=== PATIENT | male | born 1970 | race Caucasian/White ===

== ENCOUNTER 2019-08-24 14:49 | Emergency (ER) | payer BC, SELFPAY ==
--- NOTE | ~2019-08-24 | CT_ITS ---
EXAMINATION: CT abdomen pelvis wo con DATE: 08/24/2019 15:17 INDICATION: Hematuria TECHNIQUE: Computed tomography (CT) of the abdomen and pelvis was performed without intravenous contr ast. The dose-length product (DLP) was 866.08 mGy-cm. Automated exposure control and iterative recons truction technique were employed. COMPARISON: None FINDINGS: The lung bases are clear. The heart size is normal. Punctate calcifications in an otherwise normal spleen likely represent healed granulomatous disease. There is an 8 mm cyst of the left hepat ic lobe. The gallbladder, pancreas, and adrenal glands are normal. There is an 8 mm stone in the left renal pelvis. Nonobstructing stones of the right kidney measure up to 2 mm. Simple cysts of the kidn eys measure up to 1.7 cm on the left. A 5 mm hyperattenuating lesion in the left kidney upper pole is too small to characterize but likely represents a hemorrhagic cyst. No pathologically enlarged abdom inal or pelvic lymph nodes are identified. There is no free intraperitoneal gas or evidence of bowel obstruction. There is moderate lumbar spondylosis. IMPRESSION: 1. 8 mm stone in the left renal pelvis. 2. Nonobstructing right nephrolithiasis. Reviewed, dictated and finalized at location A.
--- NOTE | ~2019-08-24 | XR_ITS ---
EXAMINATION: XR abdomen/kub 1V INDICATION: Left renal pelvis stone TECHNIQUE: Supine views of the abdomen were obtained on 2 radiographs. COMPARISON: CT from today FINDINGS: A subtle calcification projects in the expected location of the left renal pelvis at the le eveline of the L1-2 disc space. Phleboliths are noted in the pelvis. There is moderate lumbar spondylosis . The bowel gas pattern is normal. IMPRESSION: 1. Subtle calcification projecting in the expected location of the left renal pelvis at the level of the L1-2 disc space. Reviewed, dictated and finalized at location A. IMPRESSION: 1. Subtle calcification projecting in the expected location of the left renal p scarlet at the level of the L1-2 disc space.
--- NOTE | 2019-08-24 14:57 | ED.ABDPAIN ---
HPI - Abdominal Pain General Chief Complaint: Urogenital-Male Stated Complaint: Blood in urine Time Seen by Provider: 08/24/19 14:52 Source: patient Mode of arrival: ambulatory Limitations: no limitations History of Present Illness HPI narrative: Patient is a 48-year-old male who presents for evaluation of blood present in his urine. Patient has had a 1 day history of blood present in his urine. He denies any painful urination. No back pain. No lightheadedness, no dizziness, no shortness of breath. Patient has no history of kidney stones. He is not on any blood thinning medication. Patient is active, no recent increase in exertional activity. Patient has been hydrating well, no nausea or vomiting. Patient reports a history of prostate issues, states he is not taking any medication for this. At times he has discomfort with urination, but denies that currently. No back pain. No history of cancer. Related Data Home Medications Medication Instructions Recorded Confirmed No Home Medications 08/24/19 08/24/19 Allergies Allergy/AdvReac Type Severity Reaction Status Date / Time No Known Allergies Allergy Verified 08/24/19 15:03 Review of Systems Review of Systems: Narrative: CONSTITUTIONAL: Denies fever, chills, or sweats. ENT: Denies rhinorrhea, congestion, sore throat, or otalgia. CARDIOVASCULAR: Denies chest pain, palpitations, or edema. RESPIRATORY: Denies cough or dyspnea. GASTROINTESTINAL: Denies abdominal pain, nausea, vomiting, or diarrhea. GENITOURINARY: Reports hematuria, denies dysuria, no frequency SKIN: Denies rash or itching. MUSCULOSKELETAL: Denies back pain, joint pain, or myalgia. NEUROLOGIC: Denies headache, numbness, or weakness. [facility] Past Medical History Medical History (Updated 08/25/19 @ 00:00 by Background Daemon) BPH (benign prostatic hyperplasia) Surgical History Surgical History (Updated 08/24/19 @ 15:06 by Brigida Simpson MD) No pertinent past surgical history Social History Social History (Updated 08/24/19 @ 15:06 by Brigida Simpson MD) Substance use: never Gender identity (if verbalized by the patient): Male Exam Narrative: Exam Narrative: GENERAL: Awake, alert, conversant HEAD: Normocephalic, atraumatic. EYES: PERRLA and EOMI. ENT: Nares clear, no rhinorrhea or epistaxis. Mucous membranes moist. NECK: Supple. CHEST: No respiratory distress, breathing even and non labored HEART: Regular rate, sinus rhythm ABDOMEN:Non distended, non tender EXTREMITIES: Normal range of motion. No edema. SKIN: Warm, dry, no rash. NEURO:No focal deficits. Alert and oriented x3 Course Course Emergency Course: Patient presented for evaluation of painless hematuria. At the time of initial assessment, ABCs are intact, vital signs are stable. Physical exam unremarkable. Patient with grossly bloody urine. No urinary retention, pain of any sort, dysuria or frequency. Laboratory results show hematuria without UTI. No anemia. No acute kidney injury. CT scan with bilateral nephrolithiasis, there is a left renal pelvis stone that is 8 mm in size. No hydronephrosis. Urine culture sent. Dr. Earl was in the ED and took patient's name and will telehealth follow up with patient tomorrow or later this week. Patient was then discharged home Vital Signs Vital signs: Vital Signs Temperature 37.2 C 08/24/19 14:58 Pulse Rate 78 08/24/19 14:58 Respiratory Rate 16 08/24/19 14:58 Blood Pressure 162/105 H 08/24/19 14:58 Pulse Oximetry 97 08/24/19 14:58 Temperature 37.2 C 08/24/19 14:58 Pulse Rate 78 08/24/19 14:58 Respiratory Rate 16 08/24/19 14:58 Blood Pressure 162/105 H 08/24/19 14:58 Pulse Oximetry 97 08/24/19 14:58 MDM - Abdominal Pain Differential Diagnosis Differential diagnosis: Likely calculus of kidney and other (UTI, Mass) Lab Data Attestation: I reviewed the patient's lab results. Result diagrams: 08/24/19 15:07
[2019-08-24 14:58] VITALS: BP 162/105; PULSE 78; RESP 16; TEMP 37.2; O2SAT 97
[2019-08-24 15:16] LABS: Basophils Absolute Auto 0.1 K/mm3 (0.0-0.1); Basophils Percent Auto 0.8 % (0.2-1.2); Eosinophils Absolute Auto 0.2 K/mm3 (0-0.3); Eosinophils Percent Auto 2.6 % (0-4.4); Hematocrit 42.9 % (42.0-52.0); Hemoglobin 15.2 g/dL (14.0-18.0); Immature Granulocyte Absolute 0.03 K/mm3 (0.00-0.031); Immature Granulocyte Percent A 0.5 % (0-0.5); Lymphocytes Absolute Auto 2.25 K/mm3 (0.9-3.2); Lymphocytes Percent Auto 34.1 % (18.3-44.2); Mean Corpuscular HGB Conc 35.4 g/dl (32-36); Mean Corpuscular Hemoglobin 30.6 pg (26-34); Mean Corpuscular Volume 86.5 fl (80-100); Mean Platelet Volume 9.7 fl (7.4-10.4); Monocytes Absolute Auto 0.6 K/mm3 (0.1-0.6); Monocytes Percent Auto 9.6 % (2.6-8.5); Neutrophils Absolute Auto 3.5 K/mm3 (1.3-6.7); Neutrophils Percent Auto 52.4 % (45.5-73.1); Platelet Count Result 209 k/mm3 (150-375); Red Blood Count 4.96 M/mm3 (4.6-6.20); Red Cell Distribution Width 11.8 % (11.5-14.5); White Blood Count 6.6 K/mm3 (4.5-10.0)
[2019-08-24 15:26] LABS: Blood Urea Nitrogen 17 mg/dL (9-20); Calcium 9.4 mg/dL (8.4-10.2); Carbon Dioxide 24 mmol/L (22-30); Chloride 104 mmol/L (98-107); Estimated CRCL calculation 124 ml/min; Estimated Glomerular Filt Rate > 60; Glucose 97 mg/dL (75-110); Sodium 137 mmol/L (137-145)
[2019-08-24 15:27] LABS: Add Urine Microscopic? YES; Appearance Urine Cloudy (Clear); Bilirubin Urine Negative (Negative); Blood Urine 3+ (Negative); Color Urine Red (Yellow); Glucose Urine UA Negative (Negative); Ketones Urine Negative (Negative); Leukocyte Esterase Ur Negative LEU/UL (Negative); Nitrate Urine Negative (Negative); Protein Urine 2+ mg/dL (Negative); RBC Urine >75 /hpf (0-2); Specific Grav Ur 1.025 (1.001-1.035); Urobilinogen Urine Negative mg/dL (<2.0)
== END 2019-08-24 16:57 | disposition home or self-care (01) ==
PROVIDERS: Emergency Provider Emergency Medicine
DX: N20.0 Calculus of kidney (principal); R31.9 Hematuria, unspecified; N40.0 Benign prostatic hyperplasia without lower urinary tract symptoms
CPT/HCPCS: 36415; 74018; 74176; 80048; 81001; 85025; 87077; 87086; 87088; 99284